=== PATIENT | female | born 1950 | race Caucasian/White ===

== ENCOUNTER 2017-01-05 18:12 | Emergency (ER) | payer MEDICARE ==
[~2017-01-05] VITALS: Ht 165.1 cm; Wt 73.0 kg
[~2017-01-05 18:12] MED LIST: LISI-363 PO; METO50TA PO
[2017-01-05 18:20] VITALS: BP 184/103; PULSE 86; RESP 16; TEMP 97.7; O2SAT 97
[2017-01-05] MEDS ORDERED: SODIUM CHLOR 0.9% 1000 ML INJ 1,000 ML IV SCH (18:42)
[2017-01-05] MEDS ORDERED: ONDANSETRON HCL 4 MG/2 ML VIAL IVP ONE (18:45)
[2017-01-05] MEDS ORDERED: SODIUM CHLORIDE 0.9% FLUSH 5 ML FLUSH IVF PRN (18:45)
--- NOTE | 2017-01-05 18:45 | PD ---
HPI Chief Complaint: GI Complaint Time Seen by Provider: 18:39 Travel History International Travel<30 days: No Contact w/Intl Traveler<30days: No Traveled to known affect area: No History of Present Illness HPI 66-year-old female here for evaluation of nausea, vomiting, epigastric abdominal pain. Symptoms have been going on for last 2 days. Emesis is clear, nonbloody. Patient reports that she is now dry heaving. She has some epigastric abdominal discomfort. No chest pain or dyspnea. No history of abdominal surgeries. Last bowel movement was this morning and was normal. No diarrhea. No urinary symptoms. PFSH Past Medical History Blood Disorders: No Cardiovascular Problems: No Diabetes: No Diminished Hearing: No Endocrine: No Gastrointestinal Disorders: Yes (PYLORIC STENOSIS) Genitourinary: No Hypertension: Yes Immune Disorder: No Musculoskeletal: No Neurologic: No Psychiatric: No Reproductive: No Respiratory: No Menopausal: Yes Tubal Ligation: Yes Past Surgical History Gynecologic Surgery: Yes (TUBAL) Social History Alcohol Use: Yes (rare) Tobacco Use: Yes (1 PPD) Substance Use: Yes (THC) Allergies-Medications (Allergen,Severity, Reaction): Coded Allergies: No Known Allergies (Verified , 01/05/17) Reported Meds & Prescriptions Reported Meds & Active Scripts Active Reported Metoprolol Tartrate 50 mg (Metoprolol Tartrate) 50 Mg Tab 50 Mg PO BID Lisinopril 20 mg (Lisinopril) 20 Mg Tab 1 Tab PO DAILY Review of Systems Except as stated in HPI: all other systems reviewed are Neg Physical Exam Narrative GENERAL: Well-developed, well-nourished, comfortable, no acute distress. SKIN: Warm and dry. No rash. HEAD: Atraumatic. Normocephalic. EYES: Pupils equal and round. No scleral icterus. No injection or drainage. ENT: No nasal bleeding or discharge. Mucous membranes pink and dry. CARDIOVASCULAR: Regular rate and rhythm. RESPIRATORY: No accessory muscle use. Clear to auscultation. Breath sounds equal bilaterally. GASTROINTESTINAL: Abdomen soft, nondistended. Mild epigastric tenderness without rebound or guarding. Normal bowel sounds. Rest of abdomen is soft and nontender. MUSCULOSKELETAL: No obvious deformities. No clubbing. No cyanosis. No edema. NEUROLOGICAL: Awake and alert. No obvious cranial nerve deficits. Motor grossly within normal limits. Normal speech. PSYCHIATRIC: Appropriate mood and affect; insight and judgment normal. Data Data Last Documented VS Vital Signs Date Time Temp Pulse Resp B/P Pulse Ox O2 Delivery O2 Flow Rate FiO2 01/05/17 18:20 97.7 86 16 184/103 97 Orders Complete Blood Count With Diff (01/05/17 18:42) Comprehensive Metabolic Panel (01/05/17 18:42) Lipase (01/05/17 18:42) Prothrombin Time / Inr (Pt) (01/05/17 18:42) Act Partial Throm Time (Ptt) (01/05/17 18:42) Urinalysis - C+S If Indicated (01/05/17 18:42) Ct Abd/Pel W Iv Contrast(Rout) (01/05/17 18:42) Iv Access Insert/Monitor (01/05/17 18:42) Ecg Monitoring (01/05/17 18:42) Oximetry (01/05/17 18:42) Ondansetron Inj (Zofran Inj) (01/05/17 18:45) Sodium Chlor 0.9% 1000 Ml Inj (Ns 1000 M (01/05/17 18:42) Sodium Chloride 0.9% Flush (Ns Flush) (01/05/17 18:45) Electrocardiogram (01/05/17 18:42) Ckmb (Isoenzyme) Profile (01/05/17 18:42) Troponin I (01/05/17 18:42) Influenzae A/B Antigen (01/05/17 18:44) Iohexol 350 Inj (Omnipaque 350 Inj) (01/05/17 20:14) Ciprofloxacin (Cipro) (01/05/17 20:45) Metronidazole (Flagyl) (01/05/17 20:45) Labs Laboratory Tests Test 01/05/17 01/05/17 19:26 20:30 White Blood Count 12.6 TH/MM3 Red Blood Count 4.79 MIL/MM3 Hemoglobin 13.1 GM/DL Hematocrit 39.3 % Mean Corpuscular Volume 82.0 FL Mean Corpuscular Hemoglobin 27.3 PG Mean Corpuscular Hemoglobin 33.3 % Concent Red Cell Distribution Width 12.3 % Platelet Count 318 TH/MM3 Mean Platelet Volume 8.1 FL Neutrophils (%) (Auto) 85.1 % Lymphocytes (%) (Auto) 10.4 % Monocytes (%) (Auto) 3.8 % Eosinophils (%) (Auto) 0.2 % Basophils (%) (Auto) 0.5 % Neutrophils # (Auto) 10.7 TH/MM3 Lymphocytes # (Auto) 1.3 TH/MM3 Monocytes # (Auto) 0.5 TH/MM3 Eosinophils # (Auto) 0.0 TH/MM3 Basophils # (Auto) 0.1 TH/MM3 CBC Comment DIFF FINAL Differential Comment Prothrombin Time 10.5 SEC Prothromb Time International 1.0 RATIO Ratio Activated Partial 23.3 SEC Thromboplast Time Sodium Level 140 MEQ/L Potassium Level 3.6 MEQ/L Chloride Level 103 MEQ/L Carbon Dioxide Level 26.9 MEQ/L Anion Gap 10 MEQ/L Blood Urea Nitrogen 11 MG/DL Creatinine 0.92 MG/DL Estimat Glomerular Filtration 61 ML/MIN Rate Random Glucose 120 MG/DL Calcium Level 9.3 MG/DL Total Bilirubin 0.4 MG/DL Aspartate Amino Transf 14 U/L (AST/SGOT) Alanine Aminotransferase 21 U/L (ALT/SGPT) Alkaline Phosphatase 93 U/L Total Creatine Kinase 57 U/L Troponin I LESS THAN 0.02 NG/ML Total Protein 8.1 GM/DL Albumin 4.0 GM/DL Lipase 126 U/L Urine Color YELLOW Urine Turbidity SLIGHT Urine pH 6.0 Urine Specific [place] GREATER THAN 1.035 Urine Protein 300 OR GREATER mg/dL Urine Glucose (UA) NEG mg/dL Urine Ketones 15 mg/dL Urine Occult Blood LARGE Urine Nitrite NEG Urine Bilirubin NEG Urine Leukocyte Esterase NEG Urine RBC 25-49 /hpf Urine WBC 3-5 /hpf Urine Squamous Epithelial 6-8 /hpf Cells Urine Bacteria RARE /hpf Microscopic Urinalysis Comment CULT NOT INDICATED MDM Medical Decision Making Medical Screen Exam Complete: Yes Emergency Medical Condition: Yes Interpretation(s) EKG: Sinus, rate 82, normal axis, normal intervals, no acute ischemic abnormality. Differential Diagnosis Viral illness, gastritis, peptic ulcer disease, hepatobiliary disease, dehydration, ACS Narrative Course Vital signs show heart rate 86, blood pressure 184/103, pulse ox 97% on room air , oral temp of 97.7F. CBC shows WBC 12.6, hemoglobin 13.1, hematocrit 39.3, platelets 318, neutrophils 85%. CMP is unremarkable. Cardiac enzymes are negative. Lipase is 126. Influenza is negative. UA shows 300 or greater protein, 15 ketones, large occult blood, 25-49 RBCs, 6 states comes epithelial cells, rare bacteria, culture not indicated. CT abdomen pelvis: CONCLUSION: 1. Renal and hepatic low densities likely benign cysts. 2. Wall thickening versus non-distention of the transverse colon could be colitis. No perforation or abscess. 3. Low-density lesion within the spleen measures 14 mm, likely benign. Outpatient MRI of the abdomen may be warranted. 4. Scattered diverticula without diverticulitis. Patient was made aware of all findings and was provided a copy of the CT abdomen pelvis report. I will treat her for possible colitis seen on CT abdomen pelvis with Cipro and Flagyl. She is tolerating clear liquids orally. She is stable for discharge home with outpatient follow-up with her primary care physician this week. I stressed the importance of follow-up regarding her hematuria as well with her primary care physician. She was informed on when to return to the emergency department patient. She understanding and agreement with plan. Diagnosis Primary Impression: Colitis Additional Impressions: Nausea and vomiting Qualified Code: R11.2 - Non-intractable vomiting with nausea, unspecified vomiting type Hepatic cyst Renal cyst Hematuria Referrals: Primary Care Physician 3 days Additional Instructions: Follow-up with your primary care physician this week. Take antibiotics as prescribed. Stay hydrated with plenty of fluids. Return to the emergency department for worsening symptoms or any other concerns. Scripts Tramadol 50 Mg Tab50 Mg PO Q6H PRN (PAIN) #15 TAB Ref 0 Prov:David Villarreal MD 01/05/17 Ondansetron Odt (Zofran Odt)4 Mg Tab4 Mg SL Q6HR PRN (Nausea/Vomiting) #20 TAB Ref 0 Prov:David Villarreal MD 01/05/17 Metronidazole (Flagyl)500 Mg [id number] Mg PO BID 10 Days Ref 0 Prov:David Villarreal MD 01/05/17 Ciprofloxacin (Cipro)500 Mg Qek165 Mg PO BID 10 Days Ref 0 Prov:David Villarreal MD 01/05/17 Disposition: 01 DISCHARGE HOME Condition: Stable David Villarreal MD Jan 05, 2017 18:45
[2017-01-05 19:35] LABS: AUTOMATED NEUTROPHIL # 10.7 TH/MM3 (1.8-7.7); BASOPHIL # 0.1 TH/MM3 (0-0.2); BASOPHIL % 0.5 % (0.0-2.0); EOSINOPHIL % 0.2 % (0.0-4.0); HEMATOCRIT 39.3 % (35.0-46.0); HEMO FLAGS DIFF FINAL; LYMPH % 10.4 % (9.0-44.0); LYMPHOCYTE # 1.3 TH/MM3 (1.0-4.8); MEAN CORPUSCULAR HEMOGLOBIN 27.3 PG (27.0-34.0); MEAN CORPUSCULAR HGB CONC 33.3 % (32.0-36.0); MONO % 3.8 % (0.0-8.0); NEUT % 85.1 % (16.0-70.0); PLATELET COUNT 318 TH/MM3 (150-450); RED BLOOD COUNT 4.79 MIL/MM3 (4.00-5.30); RED CELL DISTRIBUTION WIDTH 12.3 % (11.6-17.2); WHITE BLOOD COUNT 12.6 TH/MM3 (4.0-11.0)
[2017-01-05 19:48] LABS: CHLORIDE 103 MEQ/L (98-107); POTASSIUM 3.6 MEQ/L (3.5-5.1); SODIUM (NA) 140 MEQ/L (136-145)
[2017-01-05 19:51] LABS: ANION GAP 10 MEQ/L (5-15); BICARBONATE 26.9 MEQ/L (21.0-32.0)
[2017-01-05 19:52] LABS: BLOOD UREA NITROGEN 11 MG/DL (7-18)
[2017-01-05 19:53] LABS: APTT (PATIENT) 23.3 SEC (24.3-30.1); PROTHROMBIN TIME - PATIENT 10.5 SEC (9.8-11.6)
[2017-01-05 19:54] LABS: ALT (GPT) 21 U/L (10-53); AST (GOT) 14 U/L (15-37); GLOMERULAR FILTRATION RATE 61 ML/MIN (>89)
[2017-01-05 19:56] LABS: TOTAL BILIRUBIN ADULT 0.4 MG/DL (0.2-1.0)
[2017-01-05 19:57] LABS: ALKALINE PHOSPHATASE 93 U/L (45-117)
[2017-01-05 20:00] LABS: CREATINE KINASE 57 U/L (26-192)
[2017-01-05] MEDS ORDERED: IOHEXOL 350 MG/ML 10 ML VIAL (for RAD DIAG) IV ONE (20:14)
--- NOTE | 2017-01-05 20:29 | RADHPO ---
EXAM DATE/TIME: 01/05/2017 20:07 [facility] COMPARISON: No previous studies available for comparison. INDICATIONS : Epigastric pain with nausea and vomiting for two days. IV CONTRAST: 95 cc Omnipaque 350 (iohexol) IV ORAL CONTRAST: No oral contrast ingested. RADIATION DOSE: 12.84 CTDIvol (mGy) MEDICAL HISTORY : Hypertension. SURGICAL HISTORY : Tubal ligation. ENCOUNTER: Initial ACUITY: 2 days PAIN SCALE: 7/10 LOCATION: Abdomen. TECHNIQUE: Volumetric scanning of the abdomen and pelvis was performed. Using automated exposure control and ad justment of the mA and/or kV according to patient size, radiation dose was kept as low as reasonably achievable to obtain optimal diagnostic quality images. FINDINGS: LOWER LUNGS: The visualized lower lungs are clear. LIVER: Homogeneous density without lesion. There is no dilation of the biliary tree. No calcified gallston es. Low-density lesion centrally. Several other smaller low densities. SPLEEN: Normal size without lesion. PANCREAS: 1.4 cm lesion in the body/proximal tail.. KIDNEYS: Normal in size and shape. There is no mass, stone or hydronephrosis. Subcentimeter low-density. ADRENAL GLANDS: Within normal limits. VASCULAR: There is no aortic aneurysm. BOWEL/MESENTERY: Scattered diverticulosis There is no free intraperitoneal air or fluid. ABDOMINAL WALL: Within normal limits. RETROPERITONEUM: There is no lymphadenopathy. BLADDER: No wall thickening or mass. REPRODUCTIVE: Within normal limits. INGUINAL: There is no lymphadenopathy or hernia. MUSCULOSKELETAL: Within normal limits for patient age. CONCLUSION: 1. Renal and hepatic low densities likely benign cysts. 2. Wall thickening versus non-distention of the transverse colon could be colitis. No perforation or abscess. 3. Low-density lesion within the spleen measures 14 mm, likely benign. Outpatient MRI of the abdomen may be warranted. 4. Scattered diverticula without diverticulitis. Natalio Fernandez MD on January 05, 2017 at 20:24 Board Certified Radiologist. This report was verified electronically.
[2017-01-05 20:41] LABS: BLOOD, URINE LARGE (NEG); GLUCOSE,URINE NEG (NEG); KETONE, URINE 15 mg/dL (NEG); NITRITE,URINE NEG (NEG)
[2017-01-05] MEDS ORDERED: CIPROFLOXACIN 500 MG TAB PO ONE (20:45)
[2017-01-05] MEDS ORDERED: metroNIDAZOLE 500 MG TAB PO ONE (20:45)
[2017-01-05 20:50] LABS: URINE COLOR YELLOW (YELLW/STRAW)
[2017-01-05 20:51] LABS: BACTERIA, URINE RARE /hpf; COMMENT (UR) CULT NOT INDICATED; CULTURE IF INDICATED CULT NOT INDICATED
[2017-01-05] MEDS ORDERED: CIPR-9 PO (21:11)
[2017-01-05] MEDS ORDERED: ZOFR4TAB3 SL (21:11)
[2017-01-05] MEDS ORDERED: TRAM50TA PO (21:11)
[2017-01-05] MEDS ORDERED: METR-1 PO (21:11)
[2017-01-05 22:10] VITALS: BP 200/77
--- NOTE | 2017-01-05 22:32 | EKG ---
Date Performed: 01/05/2017 Time Performed: 18:47:46 PTAGE: 66 years EKG: Sinus rhythm Normal ECG PREVIOUS TRACING : 02/24/2016 15.55 No significant change from previous tracing noted. DOCTOR: Jason Riggins Interpretating Date/Time 01/05/2017 22:30:41
== END 2017-01-05 22:11 | disposition home or self-care (01) ==
LOC: PHED 18:12
DX: K52.9 Noninfective gastroenteritis and colitis, unspecified (principal); R11.2 Nausea with vomiting, unspecified; K76.89 Other specified diseases of liver; N28.1 Cyst of kidney, acquired; R31.9 Hematuria, unspecified; R10.13 Epigastric pain; I10 Essential (primary) hypertension; F17.200 Nicotine dependence, unspecified, uncomplicated; Z87.19 Personal history of other diseases of the digestive system
CPT/HCPCS: 74177; 80053; 81001; 82550; 83690; 84484; 85025; 85610; 85730; 87804; 93005; 96361; 96374; 99284; J2405; J7030; Q9967